=== PATIENT | female | born 1990 | race Caucasian/White ===

== ENCOUNTER 2017-08-24 14:37 | Inpatient (IN) | payer OTHER ==
[2017-08-24 15:24] VITALS: BMI 46.3
--- NOTE | 2017-08-24 18:25 | HP ---
Admission ROS [facility] Chief Complaint: I am here for rehab Allergies/Adverse Reactions: Allergies Allergy/AdvReac Type Severity Reaction Status Date / Time No Known Allergies Allergy Verified 08/24/17 18:11 History of Present Illness: 27 yo female with hx alcohol, cocaine, nicotine dependence is here seeking rehab. PMHX: asthma, denies any psychiatric history. Denies suicidal ideation or suicide attempts. Last detox three weeks ago, unable to name the facility. Longest period of sobriety 5 months. Exam Limitations: No Limitations - Ebola screening Have you traveled outside of the country in the last 21 days: No Have you had contact with anyone from an Ebola affected area: No Have you been sick,other than usual withdrawal symptoms: No Do you have a fever: No - Review of Systems Constitutional: No Symptoms Reported EENT: reports: No Symptoms Reported Respiratory: reports: No Symptoms reported Cardiac: reports: No Symptoms Reported GI: reports: No Symptoms Reported : reports: No Symptoms Reported Musculoskeletal: reports: No Symptoms Reported Integumentary: reports: No Symptoms Reported Neuro: reports: No Symptoms reported Endocrine: reports: No Symptoms Reported Hematology: reports: No Symptoms Reported Psychiatric: reports: Orientated x3, Anxious Other Systems: Reviewed and Negative Patient History - Patient Medical History Hx Anemia: No Hx Asthma: Yes Hx Chronic Obstructive Pulmonary Disease (COPD): No Hx Cancer: No Hx Cardiac Disorders: No Hx Congestive Heart Failure: No Hx Hypertension: No Hx Hypercholesterolemia: No Hx Pacemaker: No HX Cerebrovascular Accident: No Hx Seizures: No Hx Dementia: No Hx Diabetes: No Hx Gastrointestinal Disorders: No Hx Liver Disease: No Hx Genitourinary Disorders: No Hx Sexually Transmitted Disorders: No Hx Renal Disease (ESRD): No Hx Thyroid Disease: No Hx Human Immunodeficiency Virus (HIV): No (last tested 6 months ago ) Hx Hepatitis C: No Hx Depression: No Hx Suicide Attempt: No Hx Bipolar Disorder: No Hx Schizophrenia: No - Patient Surgical History Past Surgical History: No Hx Neurologic Surgery: No Hx Cataract Extraction: No Hx Cardiac Surgery: No Hx Lung Surgery: No Hx Breast Surgery: No Hx Breast Biopsy: No Hx Abdominal Surgery: No Hx Appendectomy: No Hx Cholecystectomy: No Hx Genitourinary Surgery: No Hx Section: No Hx Orthopedic Surgery: No Hx Hysterectomy: No Anesthesia Reaction: No - PPD History Previous Implant?: No Documented Results: Negative w/o proof Implanted On Prior [facility] Admission?: No PPD to be Administered?: Yes - Reproductive History Patient is a Female of Child Bearing Age (11 -55 yrs old): Yes Last Menstrual Period: 07/10/17 Patient : No - Smoking Cessation Smoking history: Current every day smoker Have you smoked in the past 12 months: Yes Aproximately how many cigarettes per day: 5 Hx Chewing Tobacco Use: No Initiated information on smoking cessation: Yes 'Breaking Loose' booklet given: 08/24/17 - Substance & Tx. History Hx Alcohol Use: Yes Hx Substance Use: Yes Substance Use Type: Alcohol, Cocaine Hx Substance Use Treatment: Yes (Last detox 3 weeks ago, does not recal the name of the facility ) - Substances Abused Alcohol Route: Oral Frequency: 3-6 times per week Amount used: 5-6 drinks Age of first use: 17 Date of Last Use: 08/23/17 Cocaine Route: Smoking Frequency: 3-6 times per week Amount used: $400 Age of first use: 18 Date of Last Use: 08/03/17 Family Disease History - Family Disease History Family Disease History: Other: Father (, unkown ), Mother (, unknown ) Admission Physical Exam [facility] - Vital Signs Vital Signs: Vital Signs - 24 hr 08/24/17 15:17 Temperature 97.7 F Pulse Rate 90 Respiratory 20 Rate Blood Pressure 130/89 - Physical General Appearance: Yes: Appropriately Dressed, Obese, Anxious HEENTM: Yes: EOMI, Hearing grossly Normal, Normal ENT Inspection, Normocephalic , Normal Voice, KANA, Pharynx Normal, Tm's normal Respiratory: Yes: Chest Non-Tender, Lungs Clear, Normal Breath Sounds, No Respiratory Distress, No Accessory Muscle Use Neck: Yes: No masses,lesions,Nodules, Trachea in good position Breast: Yes: Breast Exam Deferred Cardiology: Yes: Regular Rhythm, Regular Rate Abdominal: Yes: Normal Bowel Sounds, Non Tender, Soft, Protuberent Genitourinary: Yes: Within Normal Limits Musculoskeletal: Yes: full range of Motion, Gait Steady, Pelvis Stable Extremities: Yes: Normal Capillary Refill, Normal Inspection, Normal Range of Motion, Non-Tender 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, Fully Oriented, Alert, Motor Strength 5/5, Normal Response, Depressed Affect Integumentary: Yes: Normal Color, Dry, Warm Lymphatic: Yes: Within Normal Limits - Diagnostic (1) Cocaine dependence Current Visit: Yes Status: Acute (2) Alcohol dependence Current Visit: Yes Status: Acute (3) Obese Current Visit: Yes Status: Acute (4) Asthma Current Visit: Yes Status: Acute (5) Nicotine dependence Current Visit: Yes Status: Acute Qualifiers: Nicotine product type: cigarettes [facility] Breath Alcohol Content Breath Alcohol Content: 0 Urine Pregancy Test - Result Urine Test Results: Negative- NO Line Present Urine Drug Screen - Results Drug Screen Negative: No Urine Drug Screen Results: BZO-Benzodiazepines Inpatient Rehab Admission - Initial Determination Are CD services needed?: Yes Free of communicable disease: Yes Not in need of hospitalization: Yes - Rehab Admission Criteria Previous failed treatment: Yes Poor recovery environment: Yes Comorbidities: Yes Lacks judgement: Yes Patient is meeting Inpatient Rehab admission criteria:: Yes
[2017-08-24] MEDS ORDERED: MENTHOL/PHENOL 1 EACH UD MM PRN (18:32)
[2017-08-24] MEDS ORDERED: LOPERAMIDE HCL 2 MG CAPSULE PO PRN (18:32)
[2017-08-24] MEDS ORDERED: MAGNESIUM HYDROX 2400MG/30ML ORAL SUSPENSION 30 ML CUP PO PRN (18:32)
[2017-08-24] MEDS ORDERED: MAG HYDROX/AL HYDROX/SIMETH 30 ML UNIT-DOSE CUP PO PRN (18:32)
[2017-08-24] MEDS ORDERED: IBUPROFEN 400 MG TABLET (FP) PO PRN (18:32)
[2017-08-24] MEDS ORDERED: P-EPHED 60MG/TRIPROLIDI 2.5MG TABLET PO PRN (18:32)
[2017-08-24] MEDS ORDERED: MAGNESIUM CITRATE 300 ML BOTTLE PO PRN (18:32)
[2017-08-24] MEDS ORDERED: guaiFENesin/D-METHORPHAN HB 10 ML UNIT-DOSE CUPS PO PRN (18:32)
[2017-08-24] MEDS: THIAMINE HCL 100 MG TABLET (FP) PO SCH (21:30)
[2017-08-24] MEDS ORDERED: ALBUTEROL SO4 2.5/IPRATROPIUM 0.5 INH SOL 3 ML VIAL.NEB. NEB PRN (21:34)
[2017-08-24] MEDS ORDERED: ALBUTEROL SO4 18 GM HFA INHALER IH PRN (21:34)
[2017-08-25 08:15] LABS: URINE APPEARANCE CLOUDY; URINE BILIRUBIN NEGATIVE (<2.0 mg/dL); URINE COLOR LTYELLOW; URINE GLUCOSE (UA) NEGATIVE (NEGATIVE); URINE KETONE NEGATIVE (NEGATIVE); URINE NITRITE NEGATIVE (NEGATIVE); URINE PROTEIN NEGATIVE (NEGATIVE); URINE UROBILINOGEN NEGATIVE mg/dL (0.2-1.0)
[2017-08-25 08:22] LABS: URINE LEUK ESTERASE 3+ (NEGATIVE)
[2017-08-25 08:28] LABS: EPI CELLS MODERATE /HPF (FEW); URINE HYALINE CAST 1 /lpf
[2017-08-25] MEDS: NICOTINE 14 MG/24 HOURS TOPICAL PATCH TD SCH (09:03)
[2017-08-25] MEDS: PRENATAL VITAMINS W/ FOLIC ACID TABLET (FP) PO SCH (09:03)
[2017-08-25] MEDS: NICOTINE POLACRILEX 2 MG GUM BC PRN ×3 (09:03→22:17)
--- NOTE | 2017-08-25 09:52 | EKG ---
Test Reason : Blood Pressure : / mmHG Vent. Rate : 076 BPM Atrial Rate : 076 BPM P-R Int : 132 ms QRS Dur : 112 ms QT Int : 394 ms P-R-T Axes : 047 068 039 degrees QTc Int : 443 ms NORMAL SINUS RHYTHM NORMAL ECG NO PREVIOUS ECGS AVAILABLE Confirmed by ANKIT NORWOOD, MAGDALENA ([id number]) on 08/25/2017 9:51:54 AM Referred By: Confirmed By:MAGDALENA PHAM MD
[2017-08-25 09:54] LABS: HEMATOCRIT 34.4 % (32.4-45.2); HEMOGLOBIN 11.5 GM/dL (10.7-15.3); MCH 29.8 pg (25.7-33.7); MCHC 33.4 g/dl (32.0-36.0); MEAN CELL VOLUME 89.2 fl (80-96); MEAN PLT VOLUME 8.4 fl (7.5-11.1); PLATELET COUNT 302 K/MM3 (134-434); RBC 3.86 M/mm3 (3.60-5.2); RDW 14.8 % (11.6-15.6); WHITE BLOOD COUNT 5.4 K/mm3 (4.0-10.0)
[2017-08-25 10:33] LABS: ALBUMIN 3.6 g/dl (3.4-5.0); ANION GAP 9 (8-16); BILIRUBIN,TOTAL 0.3 mg/dL (0.2-1.0); BLOOD UREA NITROGEN 20 mg/dL (7-18); CALCIUM 8.4 mg/dL (8.5-10.1); CHLORIDE 108 mmol/L (98-107); CO2 25 mmol/L (21-32); GLUCOSE,RANDOM 94 mg/dL (74-106); POTASSIUM 4.5 mmol/L (3.5-5.1); SGOT/AST 12 U/L (15-37); SGPT/ALT 19 U/L (12-78); SODIUM 142 mmol/L (136-145); TOT PROT 7.1 g/dl (6.4-8.2)
[2017-08-25 10:34] LABS: ALK PHOS 65 U/L (45-117); CREATININE 0.7 mg/dL (0.55-1.02)
--- NOTE | 2017-08-25 11:17 | HP ---
Psychiatrist Admission - Data Date of interview: 08/25/17 Admission source: [facility] Identifying data: This is the first admissin to [facility] 27 yo h single mother of 2 (6 and 9 yo).Patient resides with her boyfriend,supported by [employer].Her children reside with the patient's brother. Medical History: Yesenia,BA. Psychiatric History: Denies. Physical/Sexual Abuse/Trauma History: denies Vital Signs: Vital Signs - 24 hr 08/24/17 08/25/17 08/25/17 15:17 00:52 03:30 Temperature 97.7 F Pulse Rate 90 Respiratory 20 18 18 Rate Blood Pressure 130/89 08/25/17 06:54 Temperature 98.1 F Pulse Rate 67 Respiratory 18 Rate Blood Pressure 119/79 Allergies/Adverse Reactions: Allergies Allergy/AdvReac Type Severity Reaction Status Date / Time No Known Allergies Allergy Verified 08/24/17 18:11 Date of last physical exam: 08/24/17 Concur with the findings of this exam: Yes - Substance Abuse/Tx History Hx Alcohol Use: Yes (reports drinking since 17 yo,vodka 2-3 pints) Hx Substance Use: Yes (cocaine/crack since 18,$400 daily at time) Hx Substance Use Treatment: Yes (this is her first inpatient rehabilitation) Mental Status Exam - Mental Status Exam Alert and Oriented to: Time, Place, Person Cognitive Function: Grossly Intact Patient Appearance: Well Groomed Mood: Euthymic Affect: Mood Congruent Patient Behavior: Cooperative Speech Pattern: Clear Voice Loudness: Normal Thought Process: Goal Oriented Thought Disorder: Not Present Hallucinations: Denies Suicidal Ideation: Denies Homicidal Ideation: Denies Insight/Judgement: Fair Sleep: Fair Appetite: Fair Muscle strength/Tone: Normal Gait/Station: Normal Psychiatric Findings - Problem List (Gilbert 1, 2,3) (1) Alcohol dependence Current Visit: Yes Status: Chronic (2) Asthma Current Visit: Yes Status: Chronic (3) Cocaine dependence Current Visit: Yes Status: Chronic (4) Nicotine dependence Current Visit: Yes Status: Chronic Qualifiers: Nicotine product type: cigarettes - Initial Treatment Plan Initial Treatment Plan: Will monitor progress.Consider psychotropics if needed.
[2017-08-25] MEDS: THIAMINE HCL 100 MG TABLET (FP) PO SCH (21:08)
[2017-08-25] MEDS: hydrOXYzine PAMOATE 50 MG CAPSULE (FP) PO PRN (21:09)
[2017-08-26] MEDS: PRENATAL VITAMINS W/ FOLIC ACID TABLET (FP) PO SCH (09:55)
[2017-08-26] MEDS: NICOTINE 14 MG/24 HOURS TOPICAL PATCH TD SCH (09:55)
[2017-08-26] MEDS: NICOTINE POLACRILEX 2 MG GUM BC PRN ×2 (09:55→16:48)
[2017-08-26] MEDS: COLLOIDAL OATMEAL 1 BAR EACH TP PRN (14:43)
[2017-08-26] MEDS: THIAMINE HCL 100 MG TABLET (FP) PO SCH (21:11)
[2017-08-26] MEDS: hydrOXYzine PAMOATE 50 MG CAPSULE (FP) PO PRN (21:12)
[2017-08-27] MEDS: PRENATAL VITAMINS W/ FOLIC ACID TABLET (FP) PO SCH (10:24)
[2017-08-27] MEDS: NICOTINE POLACRILEX 2 MG GUM BC PRN ×2 (10:25→14:11)
--- NOTE | 2017-08-27 10:40 | PN ---
[facility] Progress Note Note: Patient has menstrual cycle today. Will hold sending UA today and order for collection on Wednesday08/29/17.
[2017-08-27] MEDS: NICOTINE 14 MG/24 HOURS TOPICAL PATCH TD SCH (10:59)
[2017-08-27] MEDS: THIAMINE HCL 100 MG TABLET (FP) PO SCH (21:12)
[2017-08-27] MEDS: hydrOXYzine PAMOATE 50 MG CAPSULE (FP) PO PRN (21:13)
[2017-08-28] MEDS ORDERED: PT OWN MED DRAWER 7, Y5N ONE (01:12)
[2017-08-28] MEDS: PRENATAL VITAMINS W/ FOLIC ACID TABLET (FP) PO SCH (10:09)
[2017-08-28] MEDS: NICOTINE POLACRILEX 2 MG GUM BC PRN ×3 (10:09→23:11)
[2017-08-28] MEDS: NICOTINE 14 MG/24 HOURS TOPICAL PATCH TD SCH (10:09)
[2017-08-28] MEDS: THIAMINE HCL 100 MG TABLET (FP) PO SCH (21:02)
[2017-08-28] MEDS: MELATONIN 5 MG TABLETS PO PRN (21:02)
[2017-08-28] MEDS: hydrOXYzine PAMOATE 50 MG CAPSULE (FP) PO PRN (21:03)
[2017-08-29] MEDS: PRENATAL VITAMINS W/ FOLIC ACID TABLET (FP) PO SCH (10:09)
[2017-08-29] MEDS: NICOTINE 14 MG/24 HOURS TOPICAL PATCH TD SCH (10:09)
[2017-08-29] MEDS: NICOTINE POLACRILEX 2 MG GUM BC PRN ×4 (10:09→21:04)
[2017-08-29 13:59] LABS: URINE APPEARANCE CLEAR; URINE BILIRUBIN NEGATIVE (<2.0 mg/dL); URINE COLOR LTYELLOW; URINE GLUCOSE (UA) NEGATIVE (NEGATIVE); URINE KETONE NEGATIVE (NEGATIVE); URINE LEUK ESTERASE NEGATIVE (NEGATIVE); URINE NITRITE NEGATIVE (NEGATIVE); URINE PROTEIN NEGATIVE (NEGATIVE); URINE UROBILINOGEN NEGATIVE mg/dL (0.2-1.0)
[2017-08-29 14:02] LABS: EPI CELLS RARE /HPF (FEW)
[2017-08-29] MEDS: MELATONIN 5 MG TABLETS PO PRN (21:03)
[2017-08-29] MEDS: THIAMINE HCL 100 MG TABLET (FP) PO SCH (21:03)
[2017-08-29] MEDS: hydrOXYzine PAMOATE 50 MG CAPSULE (FP) PO PRN (21:03)
[2017-08-30] MEDS: PRENATAL VITAMINS W/ FOLIC ACID TABLET (FP) PO SCH (09:37)
[2017-08-30] MEDS: NICOTINE 14 MG/24 HOURS TOPICAL PATCH TD SCH (09:37)
[2017-08-30] MEDS: NICOTINE POLACRILEX 2 MG GUM BC PRN ×2 (09:38→17:58)
[2017-08-30] MEDS: ACETAMINOPHEN 325 MG TABLET (FP) PO PRN (17:58)
[2017-08-30] MEDS: THIAMINE HCL 100 MG TABLET (FP) PO SCH (21:09)
[2017-08-30] MEDS: MELATONIN 5 MG TABLETS PO PRN (21:09)
[2017-08-30] MEDS: hydrOXYzine PAMOATE 50 MG CAPSULE (FP) PO PRN (21:10)
[2017-08-30] MEDS: COLLOIDAL OATMEAL 1 BAR EACH TP PRN (22:24)
--- NOTE | 2017-08-31 09:50 | EKG ---
Test Reason : Blood Pressure : / mmHG Vent. Rate : 083 BPM Atrial Rate : 083 BPM P-R Int : 146 ms QRS Dur : 098 ms QT Int : 400 ms P-R-T Axes : 034 062 045 degrees QTc Int : 470 ms NORMAL SINUS RHYTHM NORMAL ECG WHEN COMPARED WITH ECG OF 24-AUG-2017 23:48, NO SIGNIFICANT CHANGE WAS FOUND Confirmed by MD Peñaloza Edward ([id number]) on 08/31/2017 9:50:42 AM Referred By: Confirmed By:Rony Peñaloza MD
[2017-08-31] MEDS: NICOTINE POLACRILEX 2 MG GUM BC PRN ×3 (09:58→21:17)
[2017-08-31] MEDS: NICOTINE 14 MG/24 HOURS TOPICAL PATCH TD SCH (09:58)
[2017-08-31] MEDS: PRENATAL VITAMINS W/ FOLIC ACID TABLET (FP) PO SCH (09:58)
[2017-08-31] MEDS ORDERED: PT OWN MED DRAWER 7, Y5N ONE ×2 (21:09→23:22)
[2017-08-31] MEDS: hydrOXYzine PAMOATE 50 MG CAPSULE (FP) PO PRN (21:16)
[2017-08-31] MEDS: THIAMINE HCL 100 MG TABLET (FP) PO SCH (21:16)
[2017-08-31] MEDS: MELATONIN 5 MG TABLETS PO PRN (21:16)
[2017-09-01] MEDS: PRENATAL VITAMINS W/ FOLIC ACID TABLET (FP) PO SCH (09:44)
[2017-09-01] MEDS: NICOTINE 14 MG/24 HOURS TOPICAL PATCH TD SCH (09:44)
[2017-09-01] MEDS: NICOTINE POLACRILEX 2 MG GUM BC PRN ×2 (09:46→14:33)
--- NOTE | 2017-09-01 17:25 | PN ---
[facility] Progress Note Note: Patient reports 2mg Nicotine gum is not working for her, requested increase in dose. 4mg Nicotine ordered Continue to monitor
[2017-09-01] MEDS: NICOTINE POLACRILEX 2 MG GUM BUC PRN ×2 (18:16→21:05)
[2017-09-01] MEDS: THIAMINE HCL 100 MG TABLET (FP) PO SCH (21:03)
[2017-09-01] MEDS: hydrOXYzine PAMOATE 50 MG CAPSULE (FP) PO PRN (21:03)
[2017-09-01] MEDS: MELATONIN 5 MG TABLETS PO PRN (21:03)
[2017-09-02] MEDS: NICOTINE 14 MG/24 HOURS TOPICAL PATCH TD SCH (09:53)
[2017-09-02] MEDS: PRENATAL VITAMINS W/ FOLIC ACID TABLET (FP) PO SCH (09:54)
[2017-09-02] MEDS: NICOTINE POLACRILEX 2 MG GUM BUC PRN ×3 (09:54→20:14)
[2017-09-02] MEDS: ACETAMINOPHEN 325 MG TABLET (FP) PO PRN (10:39)
[2017-09-02] MEDS ORDERED: PT OWN MED DRAWER 7, Y5N ONE ×5 (13:17→21:24)
[2017-09-02] MEDS: hydrOXYzine PAMOATE 50 MG CAPSULE (FP) PO PRN ×2 (13:27→21:14)
--- NOTE | 2017-09-02 13:35 | PN ---
[facility] Progress Note Note: Patient c/o of feeling anxious d/t discharge date from rehab approaching, reports daily headaches at comes and goes since admission to rehab. Patient denies any changes in vision, photophobia, paresthesia or vertigo. Vital Signs Temperature 97.8 F 09/02/17 06:55 Pulse Rate 85 09/02/17 06:55 Respiratory Rate 18 09/02/17 06:55 Blood Pressure 125/74 09/02/17 06:55 O2 Sat by Pulse Oximetry (%) A/P AOx3, no changes in consciousness, + anxiety No sinus or yazidi tenderness Normal Heart Rate and Rhythm Lunges clear through out skin intact, no erythema - headache - anxiety Plan: Increase fluids rest naproxen 375mg BID vistaril PRN continue to monitor
[2017-09-02] MEDS: NAPROXEN 375 MG TABLET (FP) PO SCH ×2 (15:49→21:14)
[2017-09-02] MEDS: THIAMINE HCL 100 MG TABLET (FP) PO SCH (21:14)
[2017-09-02] MEDS: MELATONIN 5 MG TABLETS PO PRN (21:15)
[2017-09-03] MEDS ORDERED: PT OWN MED DRAWER 7, Y5N ONE ×2 (00:43→09:49)
[2017-09-03] MEDS: NICOTINE 14 MG/24 HOURS TOPICAL PATCH TD SCH (10:05)
[2017-09-03] MEDS: PRENATAL VITAMINS W/ FOLIC ACID TABLET (FP) PO SCH (10:05)
[2017-09-03] MEDS: NAPROXEN 375 MG TABLET (FP) PO SCH ×2 (11:00→21:41)
[2017-09-03] MEDS: NICOTINE POLACRILEX 2 MG GUM BUC PRN ×2 (14:50→21:42)
[2017-09-03] MEDS: MELATONIN 5 MG TABLETS PO PRN (21:41)
[2017-09-03] MEDS: THIAMINE HCL 100 MG TABLET (FP) PO SCH (21:41)
[2017-09-04] MEDS ORDERED: PT OWN MED DRAWER 7, Y5N ONE ×2 (09:42→21:14)
[2017-09-04] MEDS: NAPROXEN 375 MG TABLET (FP) PO SCH ×2 (09:46→21:16)
[2017-09-04] MEDS: NICOTINE 14 MG/24 HOURS TOPICAL PATCH TD SCH (09:46)
[2017-09-04] MEDS: PRENATAL VITAMINS W/ FOLIC ACID TABLET (FP) PO SCH (09:46)
[2017-09-04] MEDS: NICOTINE POLACRILEX 2 MG GUM BUC PRN ×3 (09:48→21:18)
[2017-09-04] MEDS: THIAMINE HCL 100 MG TABLET (FP) PO SCH (21:15)
[2017-09-04] MEDS: MELATONIN 5 MG TABLETS PO PRN (21:16)
[2017-09-04] MEDS: hydrOXYzine PAMOATE 50 MG CAPSULE (FP) PO PRN (21:18)
[2017-09-05] MEDS: NICOTINE 14 MG/24 HOURS TOPICAL PATCH TD SCH (10:20)
[2017-09-05] MEDS: NAPROXEN 375 MG TABLET (FP) PO SCH ×2 (10:20→22:02)
[2017-09-05] MEDS: PRENATAL VITAMINS W/ FOLIC ACID TABLET (FP) PO SCH (10:20)
[2017-09-05] MEDS: NICOTINE POLACRILEX 2 MG GUM BUC PRN (11:53)
[2017-09-05] MEDS: MELATONIN 5 MG TABLETS PO PRN (22:00)
[2017-09-05] MEDS: THIAMINE HCL 100 MG TABLET (FP) PO SCH (22:00)
[2017-09-05] MEDS: hydrOXYzine PAMOATE 50 MG CAPSULE (FP) PO PRN (22:00)
[2017-09-05] MEDS: COLLOIDAL OATMEAL 1 BAR EACH TP PRN (23:28)
[2017-09-06] MEDS: PRENATAL VITAMINS W/ FOLIC ACID TABLET (FP) PO SCH (09:50)
[2017-09-06] MEDS: NICOTINE POLACRILEX 2 MG GUM BUC PRN ×4 (09:51→21:09)
[2017-09-06] MEDS: NICOTINE 14 MG/24 HOURS TOPICAL PATCH TD SCH (09:51)
[2017-09-06] MEDS: NAPROXEN 375 MG TABLET (FP) PO SCH ×2 (09:51→21:07)
--- NOTE | 2017-09-06 17:28 | PN ---
Psychiatric Progress Note Vital Signs: Vital Signs Period Temp Pulse Resp BP Sys/Black Pulse Ox Last 24 Hr Date of Session: 09/06/17 Chief Complaint:: discharge visit HPI: Patient addressed alcohol and cocaine dependence. ROS: BA Current Medications: Active Medications Generic Name Dose Route Start Last Admin Trade Name Freq PRN Reason Stop Dose Admin Acetaminophen 650 mg 08/24/17 18:32 09/02/17 10:39 Tylenol - PO 650 mg Q4H PRN Administration FEVER Al Hydroxide/Mg Hydroxide 30 ml 08/24/17 18:32 Mylanta Oral Suspension - PO Q6H PRN DYSPEPSIA Albuterol Sulfate 2 puff 08/24/17 21:34 08/25/17 06:50 Ventolin Hfa Inhaler - IH 2 puff Q4H PRN Administration SHORT OF BREATH/WHEEZING Colloidal Oatmeal 1 applic 08/26/17 13:20 09/05/17 23:28 Aveeno Soap - TP 1 bar DAILY PRN Administration HYGEINE Eucalyptus/Menthol/Phenol/Sorbitol 1 each 08/24/17 18:32 Cepastat Lozenge - MM Q4H PRN SORE THROAT Guaifenesin 10 ml 08/24/17 18:32 Robitussin Dm - PO Q6H PRN COUGH Hydroxyzine Pamoate 50 mg 08/24/17 18:32 09/05/17 22:00 Vistaril - PO 50 mg Q4H PRN Administration AGITATION Loperamide HCl 4 mg 08/24/17 18:32 Imodium - PO Q6H PRN DIARRHEA Magnesium Citrate 300 ml 08/24/17 18:32 09/02/17 18:08 Citroma - PO 300 ml Q48H PRN Administration CONSTIPATION Magnesium Hydroxide 30 ml 08/24/17 18:32 09/02/17 10:39 Milk Of Magnesia - PO 30 ml DAILY PRN Administration CONSTIPATION Melatonin 5 mg 08/24/17 22:00 09/05/17 22:00 Melatonin PO 5 mg HS PRN Administration INSOMNIA Naproxen 375 mg 09/02/17 13:30 09/06/17 09:51 Naprosyn - PO Not Given BID ALFREDO Nicotine 14 mg 08/25/17 10:00 09/06/17 09:51 Nicoderm Patch - TD Not Given DAILY ALFREDO Nicotine Polacrilex 4 mg 09/01/17 17:24 09/06/17 14:09 Nicorette Gum - BUC 4 mg Q2H PRN Administration NICOTINE REPLACEMENT RX Multivit/Folic Acid/Iron 1 tab 08/25/17 10:00 09/06/17 09:50 Vitamins (Sjr) - PO 1 tab DAILY ALFREDO Administration Pseudoephedrine/Triprolidine 1 combo 08/24/17 18:32 Actifed - PO TID PRN NASAL CONGESTION Thiamine HCl 100 mg 08/24/17 22:00 09/05/17 22:00 Vitamin B1 - PO 100 mg HS ALFREDO Administration Current Side Effect: No Lab tests ordered: No Lab tests reviewed: Yes Provider note:: Patient will completed this program tomorrow 09/07/17.She has met her treatment goals and will continue to address her issues on outpatient basis at [facility] in [facility].patient reports finding Vistaril 50 mg po prn and Melatonin 5 mg po hs help to cope with sleeping difficulties, anxiety.scripts provided. Supportive therapy provided focusing on relapse prevention;coping skills,support utilization has been discussed with the patient. patient is stable for discharge for tomorrow. Total face to face time:: 30 Mental Status Exam - Mental Status Exam Alert and Oriented to: Time, Place, Person Cognitive Function: Grossly Intact Patient Appearance: Well Groomed Mood: Hopeful, Euthymic Affect: Appropriate, Mood Congruent Patient Behavior: Cooperative Speech Pattern: Clear Voice Loudness: Normal Thought Process: Goal Oriented Thought Disorder: Not Present Hallucinations: Denies Suicidal Ideation: Denies Homicidal Ideation: Denies Insight/Judgement: Fair Sleep: Fair Appetite: Good Muscle strength/Tone: Normal Gait/Station: Normal Psychiatric Treatment Plan - Problem List (2) Asthma Qualifiers: Asthma severity: mild Asthma persistence: unspecified Asthma complication type: unspecified Qualified Code(s): J45.998 - Other asthma (4) Nicotine dependence Qualifiers: Nicotine product type: cigarettes
[2017-09-06] MEDS: THIAMINE HCL 100 MG TABLET (FP) PO SCH (21:08)
[2017-09-06] MEDS: MELATONIN 5 MG TABLETS PO PRN (21:08)
[2017-09-06] MEDS: hydrOXYzine PAMOATE 50 MG CAPSULE (FP) PO PRN (21:09)
[2017-09-07 06:43] VITALS: BP 129/79; PULSE 71; TEMP 98.8
[2017-09-07] MEDS: COLLOIDAL OATMEAL 1 BAR EACH TP PRN (07:02)
[2017-09-07] MEDS: PRENATAL VITAMINS W/ FOLIC ACID TABLET (FP) PO SCH (10:05)
[2017-09-07] MEDS: NICOTINE POLACRILEX 2 MG GUM BUC PRN (10:06)
[2017-09-07] MEDS: NICOTINE 14 MG/24 HOURS TOPICAL PATCH TD SCH (10:06)
[2017-09-07] MEDS: NAPROXEN 375 MG TABLET (FP) PO SCH (10:07)
== END 2017-09-07 09:15 | disposition home or self-care (01) | DRG 772 ==
LOC: YASAS 14:37 → Y3E 18:48
PROVIDERS: ADMIT Psychiatry & Neurology Psychiatry; ATTEND Psychiatry & Neurology Psychiatry
PROC: HZ42ZZZ Group Counseling for Substance Abuse Treatment, Cognitive-Behavioral (ICD-10-PCS; principal; 2017-08-24)
DX: F10.20 Alcohol dependence, uncomplicated (principal); F14.20 Cocaine dependence, uncomplicated; F17.210 Nicotine dependence, cigarettes, uncomplicated; F41.9 Anxiety disorder, unspecified; F19.24 Other psychoactive substance dependence with psychoactive substance-induced mood disorder; E66.9 Obesity, unspecified; Z68.42 Body mass index [BMI] 45.0-49.9, adult; G44.219 Episodic tension-type headache, not intractable
CPT/HCPCS: 36415; 71045-TC-FY; 80053; 81003; 81015; 85027; 86593; 87389; 93005; 93010; 94640; J7620